=== PATIENT | female | born 1980 | race Two or more races ===

== ENCOUNTER 2017-12-20 12:13 | Emergency (ER) | payer MEDICARE, MEDICAID ==
--- NOTE | 2017-12-20 13:05 | ER Document Report ---
ED Medical Screen (RME) - General Chief Complaint: Chest Pain Stated Complaint: CHEST PAIN Time Seen by Provider: 12/20/17 12:58 Notes: Patient is a 37 year old female that presents to the emergency department today with complaints of substernal chest pain. Patient states this pain began last night prior to going to sleep at about [id number], so she took Tums which relieved her pain. Patient states she was able to sleep through the night without pain however upon awakening this morning she had pain again. Patient describes this pain as a pressure. Patient states the pain does not radiate. Patient does have a history of GERD. Patient denies a sour taste in her mouth, usage of estrogen, PE/DVT in the past, recent travel, cough, or congestion. I have greeted and performed a rapid initial assessment of this patient. A comprehensive ED assessment and evaluation of the patient, analysis of test results, and completion of the medical decision making process will be conducted by additional ED providers. Review of systems: Constitutional: No symptoms reported EENT: No symptoms reported Cardiovascular: Substernal pain Respiratory: No symptoms reported Gastrointestinal: Substernal pain Genitourinary: No symptoms reported Musculoskeletal: No symptoms reported Skin: No symptoms reported Hematologic/Lymphatic: No symptoms reported Neurological/Psychological: No symptoms reported Yes All other systems reviewed and negative Physical Exam: General: Alert, appears well. HEENT: Normocephalic. Atraumatic. PERRLA. Extraocular movements intact. Oropharynx clear. Neck: Supple. Respiratory: No respiratory distress. Abdominal: Obese. Mild reproduction of pain over epigastric area with palpation. No distension. Extremities: Moves all four extremities. Neurological: Normal cognition. AAOx4. Normal speech. Psychological: Normal affect. Normal Mood. Skin: Warm. Dry. Normal color. TRAVEL OUTSIDE OF THE [place] IN LAST 30 DAYS: No - Related Data Allergies/Adverse Reactions: oxycodone HCl [From OxyContin] Allergy (Intermediate, Verified 07/22/16 08:38) Hives aripiprazole [From Abilify] Allergy (Verified 12/20/17 12:56) fluoxetine [From Prozac] Allergy (Verified 12/20/17 12:56) gabapentin Allergy (Verified 12/20/17 12:56) pregabalin [From Lyrica] Allergy (Verified 12/20/17 12:56) rofecoxib [From Vioxx] Allergy (Verified 12/20/17 12:56) sertraline [From Zoloft] Allergy (Verified 12/20/17 12:56) ziprasidone [From Geodon] Allergy (Verified 12/20/17 12:56) Home Medications: monteluksat sodium. orpehnadrine citrate er. veramyst spray. klonopin. venlafaxine hcl er. nortriptyline. norco. vitamin d. ventolin. flonase. meclizine. famotidine. cipro Past Medical History - Social History Chew tobacco use (# tins/day): No Frequency of alcohol use: None Drug Abuse: None Pulmonary Medical History: Reports: Hx Asthma Denies: Hx Tuberculosis Renal/ Medical History: Denies: Hx Peritoneal Dialysis GI Medical History: Reports: Hx Gastroesophageal Reflux Disease Musculoskeltal Medical History: Reports Hx Arthritis, Reports Hx Muscle Weakness , Reports Hx Musculoskeletal Deformity, Reports Hx Musculoskeletal Trauma Psychiatric Medical History: Reports: Hx Anxiety, Hx Depression Past Surgical History: Reports: Hx Oral Surgery - Wrist and he. Denies: Hx Pacemaker - Immunizations Hx Diphtheria, Pertussis, Tetanus Vaccination: No - unsure Physical Exam - Vital signs Vitals: Temp Pulse Resp BP Pulse Ox 98.1 F 106 H 20 123/85 96 12/20/17 12:35 12/20/17 12:35 12/20/17 12:35 12/20/17 12:35 12/20/17 12:35 Course - Vital Signs Vital signs: Temp Pulse Resp BP Pulse Ox 98.1 F 106 H 20 123/85 96 12/20/17 12:35 12/20/17 12:35 12/20/17 12:35 12/20/17 12:35 12/20/17 12:35
[2017-12-20 13:49] LABS: ABSOLUTE EOSINOPHILS # (AUTO) 0.1 10^3/uL (0.0-0.6); ABSOLUTE LYMPHOCYTES (AUTO) 2.8 10^3/uL (0.5-4.7); ABSOLUTE MONOCYTES (AUTO) 0.6 10^3/uL (0.1-1.4); ABSOLUTE NEUT (AUTO) 6.3 10^3/uL (1.7-8.2); BASOPHILS % (AUTO) 0.5 % (0-2); EOSINOPHILS % (AUTO) 1.4 % (0-6); HEMATOCRIT 41.7 % (36.0-47.0); HEMOGLOBIN 14.1 g/dL (12.0-15.5); LYMPHOCYTES % (AUTO) 28.5 % (13-45); MEAN CORPUSCULAR HEMOGLOBIN 27.9 pg (27.0-33.4); MEAN CORPUSCULAR HGB CONC 33.9 g/dL (32.0-36.0); MEAN CORPUSCULAR VOLUME 82 fl (80-97); MONOCYTES % (AUTO) 5.6 % (3-13); PLATELET COUNT 378 10^3/uL (150-450); RED BLOOD COUNT 5.07 10^6/uL (3.72-5.28); RED CELL DISTRIBUTION WIDTH 15.2 % (11.5-14.0); TOTAL CELLS COUNTED % (AUTO) 100 %; WHITE BLOOD COUNT 9.8 10^3/uL (4.0-10.5)
[2017-12-20] MEDS ORDERED: ASPIRIN 81 MG TABLET, CHEWABLE PO ONE (13:49)
[2017-12-20 14:05] LABS: ALANINE AMINOTRANSFERASE 25 U/L (9-52); ALKALINE PHOSPHATASE 133 U/L (38-126); ANION GAP 12 (5-19); ASPARTATE AMINO TRANSFERASE 21 U/L (14-36); BILIRUBIN,DIRECT 0.2 mg/dL (0.0-0.4); BILIRUBIN,TOTAL 0.2 mg/dL (0.2-1.3); BLOOD UREA NITROGEN 6 mg/dL (7-20); CALCIUM 9.7 mg/dL (8.4-10.2); CARBON DIOXIDE 28 mmol/L (22-30); CHLORIDE 100 mmol/L (98-107); GLUCOSE 111 mg/dL (75-110); POTASSIUM 4.2 mmol/L (3.6-5.0); SODIUM 139.7 mmol/L (137-145); TOTAL PROTEIN 7.2 g/dL (6.3-8.2)
[2017-12-20 14:34] LABS: APPEARANCE,URINE CLEAR; BILIRUBIN,URINE NEGATIVE (NEGATIVE); COLOR,URINE STRAW; GLUCOSE, URINE NEGATIVE (NEGATIVE); KETONES,URINE NEGATIVE (NEGATIVE); LEUKOCYTE ESTERASE,URINE NEGATIVE (NEGATIVE); NITRITE,URINE NEGATIVE (NEGATIVE); PROTEIN,URINE NEGATIVE (NEGATIVE); URINE SPECIFIC GRAVITY 1.004; UROBILINOGEN,URINE NEGATIVE mg/dL (<2.0)
--- NOTE | 2017-12-20 14:42 | RADIOLOGY REPORT (SQ) ---
EXAM DESCRIPTION: CHEST SINGLE VIEW COMPLETED DATE/TIME: 12/20/2017 2:25 pm REASON FOR STUDY: Chest pain, midsternal COMPARISON: 07/22/2016. EXAM PARAMETERS: NUMBER OF VIEWS: One view. TECHNIQUE: Single frontal radiographic view of the chest acquired. RADIATION DOSE: NA LIMITATIONS: None. FINDINGS: LUNGS AND PLEURA: No opacities, masses or pneumothorax. No pleural effusion. MEDIASTINUM AND HILAR STRUCTURES: No masses. Contour normal. HEART AND VASCULAR STRUCTURES: Heart normal in size. Normal vasculature. BONES: No acute findings. HARDWARE: None in the chest. OTHER: No other significant finding. IMPRESSION: NO ACUTE RADIOGRAPHIC FINDING IN THE CHEST. TECHNICAL DOCUMENTATION: JOB ID: [id number] [employer]- All Rights Reserved Reading location - IP/workstation name: [email or web address]
--- NOTE | 2017-12-20 14:52 | RADIOLOGY REPORT (SQ) ---
EXAM DESCRIPTION: CTA CHEST COMPLETED DATE/TIME: 12/20/2017 2:38 pm REASON FOR STUDY: cp, dyspnea, elevated dimer COMPARISON: 07/22/2016. TECHNIQUE: CT scan of the chest performed using helical scanning technique with dynamic intravenous contrast injection. Images reviewed with lung, soft tissue and bone windows. Reconstructed coronal and sagittal MPR images reviewed. Additional 3 dimensional post-processing performed to develop Maximal Intensity Projection images ([place] P). All images stored on PACS. All CT scanners at this facility use dose modulation, iterative reconstruction, and/or weight based d osing when appropriate to reduce radiation dose to as low as reasonably achievable (ALARA). [facility]: Dose Right [facility]: CareDose [facility]: Dose Right [facility]: Teradose 4D [facility]: Zingku CONTRAST TYPE AND DOSE: contrast/concentration: Isovue 370.00 mg/ml; Total Contrast Delivered: 82.0 ml; Total Saline Delivered: 87.2 ml Contrast bolus adequate for pulmonary arteries and aorta. RENAL FUNCTION: BUN 6 creatinine 0.67. RADIATION DOSE: CT Rad equipment meets quality standard of care and radiation dose reduction techniq ues were employed. CTDIvol: 16.5 - 34.4 mGy. DLP: 1321 mGy-cm. . LIMITATIONS: None. FINDINGS: LUNGS AND PLEURA: No masses, infiltrates, pneumothorax. No pleural effusions, calcificati ons. AORTA AND GREAT VESSELS: No aneurysm. No dissection. HEART: No pericardial effusion. No significant coronary artery calcifications. PULMONARY ARTERIES: No emboli visualized in the main pulmonary arteries or the segmental branches. HILAR AND MEDIASTINAL STRUCTURES: No identified masses or abnormal nodes. HARDWARE: None in the chest. UPPER ABDOMEN: No significant findings. Limited exam. THYROID AND OTHER SOFT TISSUES: No masses. No adenopathy. BONES: No acute or significant finding. 3D MIPS: Confirm above findings. OTHER: No other significant finding. IMPRESSION: NORMAL CTA OF THE CHEST. NO PULMONARY EMBOLI. COMMENT: Quality ID # [id number]: Final reports with documentation of one or more dose reduction techniques (e.g., Automated exposure control, adjustment of the mA and/or kV according to patient size, use of iterative reconstruction technique) TECHNICAL DOCUMENTATION: JOB ID: [id number] [employer]- All Rights Reserved Reading location - IP/workstation name: [email or web address]
[2017-12-20] MEDS ORDERED: MAG HYDROX/AL HYDROX/SIMETH SUSP 30 ML UDCUP PO ONE (15:06)
[2017-12-20] MEDS ORDERED: LIDOCAINE 2% VISCOUS SOLN 20 ML UDCUP PO ONE (15:06)
--- NOTE | 2017-12-20 17:54 | ER Document Report ---
ED General - General Chief Complaint: Chest Pain Stated Complaint: CHEST PAIN Time Seen by Provider: 12/20/17 12:58 Mode of Arrival: Ambulatory Information source: Patient Notes: Patient presents complaining of chest pain with shortness of breath that started yesterday around 630. Patient states symptoms resolved when she went to bed and then returned this morning at 930. Patient denies any fever or cough. Patient denies any nausea or vomiting. Patient states she did see her primary doctor 3 days ago was diagnosed with a UTI and placed on Cipro. Patient denies any recent travel or immobilization. Patient denies any history of PE or DVT in the past. TRAVEL OUTSIDE OF THE [place] IN LAST 30 DAYS: No - HPI Onset: Yesterday Onset/Duration: Persistent Quality of pain: Pressure, Other - Tightness Pain Level: 3 Associated symptoms: Chest pain, Shortness of breath. denies: Nonproductive cough, Productive cough, Fever, Nausea, Vomiting Exacerbated by: Movement Relieved by: Denies Similar symptoms previously: No Recently seen / treated by doctor: Yes - Related Data Allergies/Adverse Reactions: oxycodone HCl [From OxyContin] Allergy (Intermediate, Verified 07/22/16 08:38) Hives aripiprazole [From Abilify] Allergy (Verified 12/20/17 12:56) fluoxetine [From Prozac] Allergy (Verified 12/20/17 12:56) gabapentin Allergy (Verified 12/20/17 12:56) pregabalin [From Lyrica] Allergy (Verified 12/20/17 12:56) rofecoxib [From Vioxx] Allergy (Verified 12/20/17 12:56) sertraline [From Zoloft] Allergy (Verified 12/20/17 12:56) ziprasidone [From Geodon] Allergy (Verified 12/20/17 12:56) Home Medications: monteluksat sodium. orpehnadrine citrate er. veramyst spray. klonopin. venlafaxine hcl er. nortriptyline. norco. vitamin d. ventolin. flonase. meclizine. famotidine. cipro Past Medical History - General Information source: Patient - Social History Smoking Status: Never Smoker Chew tobacco use (# tins/day): No Frequency of alcohol use: None Drug Abuse: None Occupation: None Lives with: Family Family History: None - Adopted does not know history Patient has suicidal ideation: No Patient has homicidal ideation: No Pulmonary Medical History: Reports: Hx Asthma Denies: Hx Tuberculosis Renal/ Medical History: Denies: Hx Peritoneal Dialysis GI Medical History: Reports: Hx Gastroesophageal Reflux Disease Musculoskeltal Medical History: Reports Hx Arthritis, Reports Hx Muscle Weakness , Reports Hx Musculoskeletal Deformity, Reports Hx Musculoskeletal Trauma Psychiatric Medical History: Reports: Hx Anxiety, Hx Depression Past Surgical History: Reports: Hx Oral Surgery - Wrist and he. Denies: Hx Pacemaker - Immunizations Hx Diphtheria, Pertussis, Tetanus Vaccination: No - unsure Review of Systems - Review of Systems Constitutional: Recent illness - Treated for UTI 3 days ago EENT: No symptoms reported. denies: Throat pain Cardiovascular: Chest pain. denies: Syncope, Dizziness Respiratory: Short of breath. denies: Cough Gastrointestinal: No symptoms reported. denies: Abdominal pain, Diarrhea, Nausea, Vomiting Genitourinary: No symptoms reported Female Genitourinary: No symptoms reported Musculoskeletal: No symptoms reported. denies: Back pain Skin: No symptoms reported Hematologic/Lymphatic: No symptoms reported Neurological/Psychological: No symptoms reported Physical Exam - Vital signs Vitals: Temp Pulse Resp BP Pulse Ox 98.1 F 106 H 20 123/85 96 12/20/17 12:35 12/20/17 12:35 12/20/17 12:35 12/20/17 12:35 12/20/17 12:35 - General General appearance: Appears well, Alert In distress: None - HEENT Head: Normocephalic Eyes: Normal Conjunctiva: Normal Ears: Normal External canal: Normal Nasal: Normal Mouth/Lips: Normal Pharynx: Normal Neck: Normal, Supple. No: Lymphadenopathy - Respiratory Respiratory status: No respiratory distress Chest status: Tender Breath sounds: Normal Chest palpation: Tender - Cardiovascular Rhythm: Tachycardia Heart sounds: S1 appreciated, S2 appreciated Murmur: No - Abdominal Inspection: Normal Distension: No distension Bowel sounds: Normal Tenderness: Nontender Organomegaly: No organomegaly - Back Back: Normal, Nontender. No: CVA tenderness - Extremities General upper extremity: Normal inspection, Normal strength. No: Edema General lower extremity: Normal inspection, Normal strength. No: Edema - Neurological Neuro grossly intact: Yes Cognition: Normal Jannie Coma Scale Eye Opening: Spontaneous Valencia Coma Scale Verbal: Oriented Jannie Coma Scale Motor: Obeys Commands Jannie Coma Scale Total: 15 - Psychological Associated symptoms: Normal affect, Normal mood - Skin Skin Temperature: Warm Skin Moisture: Dry Skin Color: Normal Course - Re-evaluation Re-evalutation: 12/20/17 15:00 Pt complains of continued chest pain that is reproducible with palpation. 12/20/17 18:00 pt reports pain resolved after GI cocktail. pt given a copy of all labs and studies. Pt encouraged to f/u with pcp as well as cardiology for a recheck. The patient has atypical chest pain as the patient's chest pain is not suggestive of pulmonary embolus, cardiac ischemia, aortic dissection, or other serious etiology. Given the extremely low risk of these diagnoses for the test in evaluation for these possibilities does not appear to be indicated at this time. Patient has been instructed to return if the symptoms worsen or change in any way. - Vital Signs Vital signs: Temp Pulse Resp BP Pulse Ox 98.1 F 106 H 13 124/93 H 96 12/20/17 12:35 12/20/17 12:35 12/20/17 18:01 12/20/17 18:01 12/20/17 18:01 - Laboratory Result Diagrams: 12/20/17 13:28 12/20/17 13:28 Laboratory results interpreted by me: 12/20/17 12/20/17 12/20/17 13:28 13:28 13:28 RDW 15.2 H D-Dimer 1.19 H BUN 6 L Glucose 111 H Alkaline Phosphatase 133 H 12/20/17 18:26 Labs- Entire Visit 12/20/17 12/20/17 12/20/17 13:28 13:28 13:28 WBC 9.8 RBC 5.07 Hgb 14.1 Hct 41.7 MCV 82 MCH 27.9 MCHC 33.9 RDW 15.2 H Plt Count 378 Seg Neutrophils % 64.0 Lymphocytes % 28.5 Monocytes % 5.6 Eosinophils % 1.4 Basophils % 0.5 Absolute Neutrophils 6.3 Absolute Lymphocytes 2.8 Absolute Monocytes 0.6 Absolute Eosinophils 0.1 Absolute Basophils 0.0 D-Dimer Sodium 139.7 Potassium 4.2 Chloride 100 Carbon Dioxide 28 Anion Gap 12 BUN 6 L Creatinine 0.67 Est GFR ( Amer) > 60 Est GFR (Non-Af Amer) > 60 Glucose 111 H Calcium 9.7 Magnesium 1.9 Total Bilirubin 0.2 Direct Bilirubin 0.2 Neonat Total Bilirubin Not Reportable Neonat Direct Bilirubin Not Reportable Neonat Indirect Bili Not Reportable AST 21 ALT 25 Alkaline Phosphatase 133 H Troponin I < 0.012 Total Protein 7.2 Albumin 4.0 Serum HCG, Qual Urine Color Urine Appearance Urine pH Ur Specific Norris Urine Protein Urine Glucose (UA) Urine Ketones Urine Blood Urine Nitrite Urine Bilirubin Urine Urobilinogen Ur Leukocyte Esterase Urine WBC (Auto) Urine RBC (Auto) Squamous Epi Cells Auto Urine Mucus (Auto) Urine Ascorbic Acid 12/20/17 12/20/17 12/20/17 13:28 13:28 14:24 WBC RBC Hgb Hct MCV MCH MCHC RDW Plt Count Seg Neutrophils % Lymphocytes % Monocytes % Eosinophils % Basophils % Absolute Neutrophils Absolute Lymphocytes Absolute Monocytes Absolute Eosinophils Absolute Basophils D-Dimer 1.19 H Sodium Potassium Chloride Carbon Dioxide Anion Gap BUN Creatinine Est GFR ( Amer) Est GFR (Non-Af Amer) Glucose Calcium Magnesium Total Bilirubin Direct Bilirubin Neonat Total Bilirubin Neonat Direct Bilirubin Neonat Indirect Bili AST ALT Alkaline Phosphatase Troponin I Total Protein Albumin Serum HCG, Qual NEGATIVE Urine Color STRAW Urine Appearance CLEAR Urine pH 6.0 Ur Specific Norris 1.004 Urine Protein NEGATIVE Urine Glucose (UA) NEGATIVE Urine Ketones NEGATIVE Urine Blood NEGATIVE Urine Nitrite NEGATIVE Urine Bilirubin NEGATIVE Urine Urobilinogen NEGATIVE Ur Leukocyte Esterase NEGATIVE Urine WBC (Auto) 0 Urine RBC (Auto) 0 Squamous Epi Cells Auto 2 Urine Mucus (Auto) RARE Urine Ascorbic Acid NEGATIVE 12/20/17 16:51 WBC RBC Hgb Hct MCV MCH MCHC RDW Plt Count Seg Neutrophils % Lymphocytes % Monocytes % Eosinophils % Basophils % Absolute Neutrophils Absolute Lymphocytes Absolute Monocytes Absolute Eosinophils Absolute Basophils D-Dimer Sodium Potassium Chloride Carbon Dioxide Anion Gap BUN Creatinine Est GFR ( Amer) Est GFR (Non-Af Amer) Glucose Calcium Magnesium Total Bilirubin Direct Bilirubin Neonat Total Bilirubin Neonat Direct Bilirubin Neonat Indirect Bili AST ALT Alkaline Phosphatase Troponin I < 0.012 Total Protein Albumin Serum HCG, Qual Urine Color Urine Appearance Urine pH Ur Specific Norris Urine Protein Urine Glucose (UA) Urine Ketones Urine Blood Urine Nitrite Urine Bilirubin Urine Urobilinogen Ur Leukocyte Esterase Urine WBC (Auto) Urine RBC (Auto) Squamous Epi Cells Auto Urine Mucus (Auto) Urine Ascorbic Acid - Diagnostic Test Radiology reviewed: Reports reviewed Discharge - Discharge Clinical Impression: Hx of gastroesophageal reflux (GERD) Chest pain Qualifiers: Chest pain type: unspecified Qualified Code(s): R07.9 - Chest pain, unspecified Condition: Stable Disposition: HOME, SELF-CARE Instructions: Chest Pain of Unclear Cause ([facility]), Prilosec (Acid Pump Inhibitor ) ([facility]), Reflux Disease (GERD) ([facility]) Additional Instructions: Return immediately for any new or worsening symptoms Followup with your primary care provider, call tomorrow to make a followup appointment Prescriptions: Omeprazole Magnesium [Prilosec Otc] 20 mg PO DAILY #15 tablet. Sucralfate [Carafate 1 gm Tablet] 1 gm PO QID #40 tablet Referrals: BAO HENNING MD [Primary Care Provider] - Follow up tomorrow
[2017-12-20 18:06] VITALS: BP 124/93
--- NOTE | 2017-12-20 21:17 | EKG REPORT ---
SEVERITY:- BORDERLINE ECG - SINUS TACHYCARDIA PROBABLE LEFT ATRIAL ABNORMALITY : Confirmed by: Melissa Soria 20-Dec-2017 21:16:29
== END 2017-12-20 18:13 | disposition home or self-care (01) ==
LOC: ER 12:13
DX: R07.9 Chest pain, unspecified (principal); K21.9 Gastro-esophageal reflux disease without esophagitis; R06.02 Shortness of breath; Z88.9 Allergy status to unspecified drugs, medicaments and biological substances
CPT/HCPCS: 93005; 99285; 36415; 87086; 83735; 84703; 85025; 80053; 81001; 84484; 85379; 71045; 71275; 93010; A9270; J3490